=== PATIENT | male | born 2005 | race African-American/Black ===

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

== ENCOUNTER 2025-02-07 08:08 | Emergency (ER) | payer OTHER ==
[~2025-02-07] VITALS: Ht 172.7 cm; Wt 65.9 kg
[~2025-02-07 08:08] MED LIST changes: +GUAI100L96 PO; -GUAIF10 PO
[2025-02-07] MEDS: KETOROLAC TROMETHAMINE 30 MG/ML VIAL IVP ONE (09:43)
[2025-02-07] MEDS ORDERED: IOHEXOL 350 MG/ML 100 ML VIAL ONE (09:47)
[2025-02-07] MEDS ORDERED: SODIUM CHLORIDE 0.9% 100 ML ONE (09:47)
[2025-02-07 09:54] LABS: PLATELET COUNT (AUTO) 183 K/uL (150-450); RED BLOOD CELL COUNT(AUTO) 5.46 MIL/uL (4.50-5.90); RED CELL DISTRIBUTION WIDTH 14.0 % (11.5-14.5); WHITE BLOOD COUNT (AUTO) 9.1 K/uL (4.5-11.0)
[2025-02-07 10:02] LABS: CALCIUM, TOTAL 8.9 mg/dL (8.8-10.5); CREATININE 0.90 mg/dL (0.60-1.30); GLOMERULAR FILTR. RATE CALC > 60 mL/min (>60); GLUCOSE,RANDOM 87 mg/dL (70-110); SODIUM SERUM 137 mmol/L (136-145); UREA NITROGEN, BLOOD 9 mg/dL (7-18)
[2025-02-07 10:09] LABS: ASPARTATE AMINOTRANSFERASE 27 U/L (15-37); TOTAL PROTEIN, SERUM 8.2 g/dL (6.4-8.2)
[2025-02-07] MEDS: SULFAMETHOX/TRIMETH DS 800-160 MG/TABLET PO ONE (11:54)
[2025-02-07] MEDS: POVIDONE-IODINE 10% 15 ML SOLUTION UD TP ONE (11:54)
[2025-02-07] MEDS: CEPHALEXIN MONOHYDRATE 500 MG CAPSULE PO ONE (11:54)
[2025-02-07] MEDS: LIDOCAINE 1% 10 ML VIAL ID ONE (11:54)
[2025-02-07] MEDS: HYDROCODONE/ACETAMINOPHEN 5-325 MG TABLET PO ONE (11:54)
[2025-02-07 15:46] VITALS: BP 151/94; PULSE 79; RESP 18; TEMP 98.1; O2SAT 98
[2025-02-07] MEDS ORDERED: SULF-261 PO (15:47)
[2025-02-07] MEDS ORDERED: CEPH-558 PO (15:47)
[2025-02-07] MEDS ORDERED: HYDR-4062 PO (15:47)
== END 2025-02-07 16:25 | disposition home or self-care (01) ==
LOC: EMS 08:08
DX: L02.31 Cutaneous abscess of buttock (principal); J45.909 Unspecified asthma, uncomplicated; Z79.899 Other long term (current) drug therapy
CPT/HCPCS: 99285; 74177; 96374; 10060; 80053; 85025; 87040; 36415; J1885; Q9967; J3490; J7050; A4247

== ENCOUNTER 2025-02-09 07:38 | Emergency (ER) | payer OTHER ==
[~2025-02-09] VITALS: Ht 167.6 cm; Wt 72.7 kg
[~2025-02-09 07:38] MED LIST changes: +CEPH-558 PO; -GUAI100L96 PO; +HYDR-4062 PO; +SULF1TAB94 PO
[2025-02-09 07:56] VITALS: TEMP 97.5
[2025-02-09 09:40] VITALS: BP 110/82; PULSE 63; RESP 16; O2SAT 99
== END 2025-02-09 11:45 | disposition home or self-care (01) ==
LOC: EMS 07:38
DX: L02.31 Cutaneous abscess of buttock (principal); J45.909 Unspecified asthma, uncomplicated; F12.90 Cannabis use, unspecified, uncomplicated; Z79.899 Other long term (current) drug therapy
CPT/HCPCS: 99282; Z7502

== ENCOUNTER 2025-02-11 06:37 | Emergency (ER) | payer OTHER ==
[~2025-02-11] VITALS: Ht 172.7 cm; Wt 63.6 kg
[~2025-02-11 06:37] MED LIST changes: +SULF-261 PO; -SULF1TAB94 PO
[2025-02-11 07:31] VITALS: BP 128/74; PULSE 68; RESP 18; TEMP 97.9; O2SAT 99
[2025-02-11 08:07] LABS: COVID AG,FIA SOURCE NASAL SWAB
[2025-02-11 08:49] LABS: SARS-COV2 (COVID) ANTIGEN,FIA Negative (Negative)
[2025-02-11 08:50] LABS: INFLUENZA TYPE A NEGATIVE FOR TYPE A (NEGATIVE); INFLUENZA TYPE B NEGATIVE FOR TYPE B (NEGATIVE)
== END 2025-02-11 10:19 | disposition home or self-care (01) ==
LOC: EMS 06:37
DX: J06.9 Acute upper respiratory infection, unspecified (principal); L02.31 Cutaneous abscess of buttock; J45.909 Unspecified asthma, uncomplicated; F12.90 Cannabis use, unspecified, uncomplicated; Z48.01 Encounter for change or removal of surgical wound dressing; Z79.2 Long term (current) use of antibiotics; Z79.899 Other long term (current) drug therapy; Z20.822 Contact with and (suspected) exposure to COVID-19
CPT/HCPCS: 87804; 99283